=== PATIENT | female | born 1945 | race Caucasian/White ===

== ENCOUNTER → 2020-04-30 15:24 | Outpatient (CLI) | payer MEDICARE, OTHER, SELFPAY ==
--- NOTE | ~2020-04-30 | MM_ITS ---
EXAMINATION: MM screening [facility] BI w gal HISTORY: Screening mammogram TECHNIQUE: Craniocaudal and mediolateral oblique 3-D tomosynthesis images were obtained and synthetic 2-D images were generated. CAD analysis was submitted and interpreted. COMPARISON: 04/10/2019, 01/19/2017, 12/16/2015 bilateral digital screening mammogram examinations BREAST PARENCHYMAL COMPOSITION: The breasts are heterogeneously dense, which may obscure small masses . FINDINGS: Bilateral arterial calcifications. There is no evidence of suspicious mass, calcification, or architectural distortion to suggest malignancy in either breast. There has been no suspicious inte rval change. IMPRESSION: 1. No mammographic evidence of malignancy. 2. Recommend routine screening mammography in one year. BI-RADS Category 2: Benign finding(s). Reviewed, dictated and finalized at location A.
== END ==
PROVIDERS: PCP Internal Medicine; Visit Provider Nurse Practitioner
DX: Z12.31 Encounter for screening mammogram for malignant neoplasm of breast (principal)
CPT/HCPCS: 77063; 77067

== ENCOUNTER → 2021-07-07 10:37 | Outpatient (CLI) | payer MEDICARE, OTHER, SELFPAY ==
--- NOTE | ~2021-07-07 | MM_ITS ---
EXAMINATION: MM screening [facility] BI w gal HISTORY: Screening mammogram TECHNIQUE: Craniocaudal and mediolateral oblique 3-D tomosynthesis images were obtained and synthetic 2-D images were generated. CAD analysis was submitted and interpreted. COMPARISON: 04/30/2020, 04/10/2019, 01/19/2017 BREAST PARENCHYMAL COMPOSITION: The breasts are heterogeneously dense, which may obscure small masses . FINDINGS: There is no evidence of suspicious mass, calcification, or architectural distortion to sugg est malignancy in either breast. There has been no suspicious interval change. IMPRESSION: 1. No mammographic evidence of malignancy. 2. Recommend routine screening mammography in one year. BI-RADS Category 1: Negative Reviewed, dictated and finalized at location A. THERAPIST
== END ==
PROVIDERS: PCP Internal Medicine; Visit Provider Nurse Practitioner
DX: Z12.31 Encounter for screening mammogram for malignant neoplasm of breast (principal)
CPT/HCPCS: 77063; 77067

== ENCOUNTER → 2022-07-01 14:14 | Outpatient (CLI) | payer MEDICARE, OTHER, SELFPAY ==
--- NOTE | ~2022-07-01 | DEXA_ITS ---
Bone Density Report Name: MAINOR COLEMAN Age: 76 Sex: Female Ethnicity: White Date of : 1945 Indication: postmenopausal osteoporosis; height loss; Referring Provider: Gricelda Hercules Study: Bone densitometry was performed. Exam Date: July 01, 2022 Accession number: [id number] Bone Density: Region BMD T-score Z-score Classification AP Spine (L1-L4) 0.793 -2.3 0.3 Osteopenia Femoral Neck (Left) 0.565 -2.6 -0.3 Osteoporosis Total Hip (Left) 0.670 -2.2 -0.3 Osteopenia Femoral Neck (Right) 0.573 -2.5 -0.3 Osteoporosis Total Hip (Right) 0.690 -2.1 -0.1 Osteopenia Total Hip Mean 0.680 -2.2 -0.2 Osteopenia World Health Organization criteria for BMD impression classify patients as: Normal (T-score at or above -1.0), Osteopenia (T-score between -1.0 and -2.5), or Osteoporosis (T-score at or below -2.5). 10-year Fracture Risk: FRAX not reported because: Some T-score for Spine Total or Hip Total or Femoral Neck at or below -2.5 Previous Exams: Region Exam Age BMD T-score BMD Change BMD Change Date g/cm2 vs Baseline vs Previous AP Spine(L1-L4) 07/01/2022 76 0.793 -2.3 -0.030* 0.028* 04/10/2019 73 0.765 -2.6 -0.058* -0.043* 12/11/2014 69 0.808 -2.2 -0.015 -0.015 03/30/2011 65 0.823 -2.0 Total Hip(Left) 07/01/2022 76 0.670 -2.2 -0.086* -0.025 04/10/2019 73 0.695 -2.0 -0.062* -0.047* 12/11/2014 69 0.742 -1.6 -0.014 -0.014 03/30/2011 65 0.756 -1.5 Total Hip(Right) 07/01/2022 76 0.690 -2.1 -0.049* -0.004 04/10/2019 73 0.694 -2.0 -0.045* -0.048* 12/11/2014 69 0.742 -1.6 0.003 0.003 03/30/2011 65 0.740 -1.7 *Denotes significance at 95% confidence level, LSC for AP Spine = 0.022 g/cm2, LSC for Total Hip = 0.027 g/cm2 Clinical Information Provided by Patient: Has used the following medications: Vitamin D, Calcium Patient maximum height was 59 Menopause Age: 39 No regular weight bearing exercise Drinks caffeinated beverages Onset of menses at age 14 Number of children 3 Impression: The patient has osteoporosis, based on the Left Femoral Neck T-score. No significant bone loss was observed. Discussion: INCREASED RISK OF FRACTURE. BONE DENSITY IS UNDESIRABLY LOW AT ONE OR MORE SKELETAL SITES, CONSISTENT WITH POSTMENOPAUSAL OSTEOPOROSIS. This patient'
== END ==
PROVIDERS: PCP Internal Medicine; Visit Provider Internal Medicine
DX: Z78.0 Asymptomatic menopausal state (principal); M85.89 Other specified disorders of bone density and structure, multiple sites; M81.0 Age-related osteoporosis without current pathological fracture
CPT/HCPCS: 77080

== ENCOUNTER → 2022-12-01 15:18 | Outpatient (CLI) | payer MEDICARE, OTHER, SELFPAY ==
--- NOTE | ~2022-12-01 | MM_ITS ---
EXAMINATION: MM screening [facility] BI w gal HISTORY: Screening mammogram TECHNIQUE: Craniocaudal and mediolateral oblique 3-D tomosynthesis images were obtained and synthetic 2-D images were generated. CAD analysis was submitted and interpreted. COMPARISON: 07/07/2021, 04/30/2020, 04/10/2019 BREAST PARENCHYMAL COMPOSITION: The breasts are heterogeneously dense, which may obscure small masses . FINDINGS: No suspicious mass, calcification, or architectural distortion are identified in either sharon ast to suggest malignancy. There has been no suspicious interval change. IMPRESSION: 1. No mammographic evidence of malignancy. 2. Recommend routine screening mammography in one year. BI-RADS Category 1: Negative Reviewed, dictated and finalized at location A.
== END ==
PROVIDERS: PCP Internal Medicine; Visit Provider Internal Medicine
DX: Z12.31 Encounter for screening mammogram for malignant neoplasm of breast (principal)
CPT/HCPCS: 77063; 77067

== ENCOUNTER 2023-04-04 12:29 | Emergency (ER) | payer MEDICARE, OTHER, SELFPAY ==
--- NOTE | ~2023-04-04 | XR_ITS ---
EXAMINATION: XR ankle LT min 3V DATE: 04/04/2023 12:53 INDICATION: Left ankle injury and swelling. TECHNIQUE: 4 views of left ankle were obtained. COMPARISON: Left foot radiographs 05/25/2006 FINDINGS: There is a nondisplaced transverse fracture of distal tip of fibula with medial aspect of t he fracture line 1.6 cm distal to the level of the tibial plafond. Joint spaces are normal. There is ankle soft tissue swelling. IMPRESSION: 1. Nondisplaced transverse fracture of distal tip of fibula. Reviewed, dictated and finalized at location A.
[2023-04-04 12:36] VITALS: BP 123/51; PULSE 67; RESP 16; TEMP 36.4; O2SAT 98
--- NOTE | 2023-04-04 14:39 | ED.LOWEXIN ---
HPI - Extremity Injury (Lower) General Chief Complaint: Extremity Injury, Lower Stated Complaint: left ankle injury Time Seen by Provider: 04/04/23 13:07 Source: patient Mode of arrival: ambulatory Limitations: no limitations History of Present Illness HPI Narrative: Patient is a 69-year-old female who presents ED with report of left lateral ankle pain. Patient reports she was wearing heels today and stood up out of a restaurant [place] when her ankle rolled. She believes it rolled inward. She states she heard and felt a loud crack in her ankle. Unable to bear weight on her ankle since then. Complains of pain and swelling to left lateral ankle. Denies any numbness or tingling. Denies any other injuries. Related Data Home Medications Medication Instructions Recorded Confirmed acetaminophen 500 mg tablet 500 mg PO DAILY PRN 10/23/19 01/26/23 (Tylenol Extra Strength) aspirin 81 mg tablet,delayed 81 mg PO DAILY 10/23/19 01/26/23 release (Adult Low Dose Aspirin) cholecalciferol (vitamin D3) 50 2,000 unit PO DAILY 10/23/19 01/26/23 mcg (2,000 unit) capsule omeprazole 20 mg capsule,delayed 20 mg PO DAILY 10/23/19 01/26/23 release calcium carbonate 500 mg calcium 500 mg PO DAILY 05/21/21 01/26/23 (1,250 mg) tablet (Calcium 500) multivitamin 1 tablet PO DAILY 08/03/22 01/26/23 Allergies Allergy/AdvReac Type Severity Reaction Status Date / Time No Known Allergies Allergy Verified 01/26/23 10:03 Review of Systems Review of Systems: CONSTITUTIONAL: Denies fever, chills, or sweats. SKIN: See HPI. MUSCULOSKELETAL: See HPI. NEUROLOGIC: Denies tingling, numbness, or weakness. All systems reviewed & are unremarkable except as noted in HPI and below [facility] Past Medical History Medical History Cataract GERD (gastroesophageal reflux disease) Graves disease Heart murmur Hyperlipidemia Hyperthyroidism Myocardial infarction 2002 Osteoarthritis Osteoporosis Thyroid eye disease Vitamin D deficiency Vitamin D deficiency Surgical History Surgical History H/O heart artery stent 2002 History of cataract surgery 06/2021 both eyes History of lumpectomy of right breast 1995 Family History Family History Mother Family history of osteoporosis Sibling Acute myocardial infarction Father Family history unknown Daughter Thyroid disorder Grandparent Goiter Social History Social History Smoking status: Never smoker Alcohol intake: current Alcohol use details: occasionally Lack of Transportation: No Lack of Food: Never True Current Housing: I Have Housing Concerned About Future Housing: No Difficulty Paying Gas/Electric Bills: No Difficulty Paying for Meds: No Currently Unemployed: No Education: High School Diploma/GED Difficulty w/ Childcare or Family Care: No Exam Narrative: GENERAL: Well appearing, well-nourished, non-toxic, in no acute distress. HEAD: Normocephalic, atraumatic. NECK: Supple. No adenopathy, no masses. RESPIRATORY: Airway patent, respirations nonlabored. Clear to auscultation bilaterally, no rales, rhonchi, wheezing. CARDIOVASCULAR: Regular rate and rhythm without murmurs, rubs, or gallops. Pedal pulses 2+ and equal bilaterally. MUSCULOSKELETAL: Limited ROM of L ankle due to pain. Tenderness to palpation along lateral malleoli with some swelling noted. Tenderness extending across the anterior ankle. No significant tenderness to medial malleoli. Sensation intact. SKIN: Warm, dry, normal color. No rashes. NEURO: A&O X3. Speech clear. Cranial nerves II-XII grossly intact. No ataxic movements. PSYCHIATRIC: Appropriate mood and affect. Normal interaction. Course Vital Signs Vital signs: Vital Signs Temp
== END 2023-04-04 15:20 | disposition home or self-care (01) ==
PROVIDERS: Emergency Provider Physician Assistant; PCP Internal Medicine
DX: S82.832A Other fracture of upper and lower end of left fibula, initial encounter for closed fracture (principal); S93.402A Sprain of unspecified ligament of left ankle, initial encounter; T14.90XA Injury, unspecified, initial encounter; K21.9 Gastro-esophageal reflux disease without esophagitis; E78.5 Hyperlipidemia, unspecified; E55.9 Vitamin D deficiency, unspecified
CPT/HCPCS: 29515; 73610; 99284

== ENCOUNTER → 2023-04-28 08:54 | Outpatient (CLI) | payer MEDICARE, OTHER, SELFPAY ==
--- NOTE | ~2023-04-28 | XR_ITS ---
XR chest 2V DATE: 04/28/2023 09:04 INDICATION: Shortness of breath, right lower chest pain. TECHNIQUE: 2 views COMPARISON: None FINDINGS: Normal heart size. Aortic arch calcification, calcification of the descending thoracic and abdominal aorta as well as great vessels. No hilar or mediastinal enlargement. No pulmonary infiltrate or consolidation, pleural effusion or pulmonary vascular congestion or pneumo thorax. Surgical clips, right upper quadrant, consistent with cholecystectomy. Prominent diffuse osteopenia. There is rotatory levoscoliosis of the lumbar spine. IMPRESSION: No active cardiopulmonary disease Thoracic and abdominal aortic and great vessel calcifications Prominent osteopenia Reviewed, dictated and finalized at location A.
== END ==
PROVIDERS: PCP Clinical Nurse Specialist; Visit Provider Clinical Nurse Specialist
DX: R06.02 Shortness of breath (principal); I70.0 Atherosclerosis of aorta; M85.80 Other specified disorders of bone density and structure, unspecified site
CPT/HCPCS: 71046

== ENCOUNTER 2023-11-23 08:42 | Outpatient (CLI) | payer MEDICARE, OTHER, SELFPAY ==
--- NOTE | ~2023-11-23 | US_ITS ---
Limited Abdominal Sonogram: Real-time sonographic imaging of the right upper quadrant was performed. Clinical History: Right upper quadrant pain Findings: The liver appears normal with no evidence of mass lesion or bile duct dilatation. Main por norah vein demonstrates normal direction of flow. The gallbladder is absent, compatible prior cholecyst ectomy. The common bile duct measures 8 mm. The visualized pancreas, aorta, and IVC are unremarkable . Impression: Dilated common bile duct may be related to prior cholecystectomy. Correlate clinically. Reviewed, dictated and finalized at location M. Impression: Dilated common bile duct may be related to prior cholecystectomy. Correlate cli nically.
== END 2023-11-23 08:43 ==
LOC: GOSHIMG 08:44
PROVIDERS: PCP Internal Medicine; Visit Provider Nurse Practitioner
DX: K83.8 Other specified diseases of biliary tract (principal)
CPT/HCPCS: 76705

== ENCOUNTER 2024-02-03 14:33 | Outpatient (CLI) | payer MEDICARE, OTHER, SELFPAY ==
--- NOTE | ~2024-02-03 | MM_ITS ---
EXAMINATION: MM screening [facility] w gal HISTORY: Screening TECHNIQUE: Craniocaudal and mediolateral oblique 3-D tomosynthesis images were obtained and synthetic 2-D images were generated. CAD analysis was submitted and interpreted. COMPARISON: Comparison to multiple prior studies sequentially, with oldest reviewed study dated 09/2015. BREAST PARENCHYMAL COMPOSITION: Dense: The breasts are heterogeneously dense, which may obscure small masses FINDINGS: There is no evidence of suspicious mass, calcification, or architectural distortion to sugg est malignancy in either breast. There has been no suspicious interval change. IMPRESSION: 1. No mammographic evidence of malignancy. 2. Recommend routine screening mammography in one year. BI-RADS Category 1: Negative Reviewed, dictated and finalized at location B.
== END 2024-02-03 14:34 ==
LOC: MICIMG 14:35
PROVIDERS: PCP Nurse Practitioner; Visit Provider Nurse Practitioner
DX: Z12.31 Encounter for screening mammogram for malignant neoplasm of breast (principal)
CPT/HCPCS: 77063; 77067

== ENCOUNTER 2025-01-19 10:47 | Outpatient (CLI) | payer MEDICARE, OTHER, SELFPAY ==
--- NOTE | ~2025-01-19 | DEXA_ITS ---
Bone Density Report Name: MAINOR COLEMAN Age: 79 Sex: Female Ethnicity: White Date of : 1945 Indication: osteopenia; monitoring treatment; height loss; prior fracture; Referring Provider: Gricelda Hercules Study: Bone densitometry was performed. Exam Date: January 19, 2025 Accession number: [id number] Bone Density: Region BMD T-score Z-score Classification AP Spine(L1-L4) 0.795 -2.3 0.4 Osteopenia Femoral Neck (Left) 0.543 -2.8 -0.4 Osteoporosis Total Hip (Left) 0.661 -2.3 -0.2 Osteopenia Femoral Neck (Right) 0.555 -2.6 -0.3 Osteoporosis Total Hip (Right) 0.663 -2.3 -0.2 Osteopenia Total Hip Mean 0.662 -2.3 -0.2 Osteopenia World Health Organization criteria for BMD impression classify patients as: Normal (T-score at or above -1.0), Osteopenia (T-score between -1.0 and -2.5), or Osteoporosis (T-score at or below -2.5). 10-year Fracture Risk: FRAX not reported because: Some T-score for Spine Total or Hip Total or Femoral Neck at or below -2.5 Treated for osteoporosis Previous Exams: -- Region Exam Age BMD T-score BMD Change BMD Change Date g/cm2 vs Baseline vs Previous -- AP Spine (L1-L4) 01/19/2025 79 0.795 -2.3 -3.5%* 0.2% 07/01/2022 76 0.793 -2.3 -3.7%* 3.7%* 04/10/2019 73 0.765 -2.6 -7.1%* -5.3%* 12/11/2014 69 0.808 -2.2 -1.9% -1.9% 03/30/2011 65 0.823 -2.0 Total Hip(Left) 01/19/2025 79 0.661 -2.3 -12.6%* -1.3% 07/01/2022 76 0.670 -2.2 -11.4%* -3.6% 04/10/2019 73 0.695 -2.0 -8.2%* -6.4%* 12/11/2014 69 0.742 -1.6 -1.9% -1.9% 03/30/2011 65 0.756 -1.5 Total Hip(Right) 01/19/2025 79 0.663 -2.3 -10.3%* -3.9% 07/01/2022 76 0.690 -2.1 -6.7%* -0.6% 04/10/2019 73 0.694 -2.0 -6.1%* -6.4%* 12/11/2014 69 0.742 -1.6 0.3% 0.3% 03/30/2011 65 0.740 -1.7 -- *Denotes significance at 95% confidence level, LSC for AP Spine = 0.022 g/cm2, LSC for Total Hip = 0.027 g/cm2 Clinical Information Provided by Patient: Has had a low trauma fracture Is being treated for osteoporosis Has used the following medications: Fosamax (i.e. alendronate), Vitamin D, Calcium Patient maximum height was 59 Menopause Age: 39 Drinks caffeinated beverages Onset of menses at age 14 Number of children 3 Impression: The patient has established osteoporosis, based on the Left Femoral Neck T-score and the existence of a prior fracture. The patient has risk factors, including: previous fracture. No significant bone loss was observed. Discussion: PATIENT UNDER TREATMENT WITH NO SIGNIFICANT BMD LOSS SINCE LAST EXAM. In an untreated patient, BMD typically declines with age. A lack of decline or gain is usually a sign that treatment is efficacious and fracture risk is reduced. It is important to ask patients whether they are taking their medications and to encourage continued and appropriate compliance with their osteoporosis therapies to reduce fracture risk. It is also important to review their risk factors and encourage appropriate calcium and vitamin D intakes, exercise, fall prevention and other lifestyle measures. Follow-Up: Consider a repeat BMD and Vertebral Fracture Assessment (VFA) exam in 2 years or sooner if medically necessary, to reassess this patient's status. Reported by: RAFY on 01/19/2025 11:24:00 AM. Reviewed, dictated and finalized at location A.
== END 2025-01-19 10:48 | disposition home or self-care (01) ==
LOC: MICIMG 10:49
PROVIDERS: PCP Internal Medicine; Visit Provider Nurse Practitioner
DX: M85.89 Other specified disorders of bone density and structure, multiple sites (principal); M81.0 Age-related osteoporosis without current pathological fracture; Z78.0 Asymptomatic menopausal state
CPT/HCPCS: 77080

== ENCOUNTER 2025-02-05 10:27 | Outpatient (CLI) | payer MEDICARE, OTHER, SELFPAY ==
--- NOTE | ~2025-02-05 | MM_ITS ---
EXAMINATION: MM screening [facility] BI w gal HISTORY: Screening mammogram TECHNIQUE: Craniocaudal and mediolateral oblique 3-D tomosynthesis images were obtained and synthetic 2-D images were generated. CAD analysis was submitted and interpreted. COMPARISON: 02/03/2024, 12/01/2022, 07/07/2021 BREAST PARENCHYMAL COMPOSITION:Dense: The breasts are heterogeneously dense, which may obscure small masses. FINDINGS: No suspicious mass, calcification, or architectural distortion are identified in either sharon ast to suggest malignancy. There has been no suspicious interval change. IMPRESSION: No mammographic evidence of malignancy. Recommend routine screening mammography in one year. BI-RADS Category 1: Negative Reviewed, dictated and finalized at location .
== END 2025-02-05 10:28 | disposition home or self-care (01) ==
LOC: MICIMG 10:27
PROVIDERS: PCP Internal Medicine; Visit Provider Nurse Practitioner
DX: Z12.31 Encounter for screening mammogram for malignant neoplasm of breast (principal)
CPT/HCPCS: 77063; 77067